=== PATIENT | female | born 1950 | race Caucasian/White ===

== ENCOUNTER 2017-01-20 10:38 | Outpatient (CLI) | payer MEDICARE, BC | END 2017-01-20 10:39 | disposition home or self-care (01) | DX: M85.89 Other specified disorders of bone density and structure, multiple sites (principal); Z78.0 Asymptomatic menopausal state ==

== ENCOUNTER 2017-12-24 10:54 | Outpatient (CLI) | payer MEDICARE, BC ==
--- NOTE | 2017-12-24 13:14 | XRAY Report ---
THREE VIEW RIGHT FOOT: 12/24/2017 CLINICAL INDICATION: Pain medially. FINDINGS: AP, lateral, oblique views of the right foot demonstrate mild degenerative changes. Plantar and posterior calcaneal spurring is present. There is no evidence of acute fracture or dislocation. No radiopaque foreign body is seen in the soft tissues. IMPRESSION: DEGENERATIVE CHANGES. TD: 12/24/2017 13:13
== END 2017-12-24 10:55 | disposition home or self-care (01) ==
LOC: DI 10:54
PROVIDERS: ATTEND Podiatrist
DX: M19.071 Primary osteoarthritis, right ankle and foot (principal)

== ENCOUNTER 2018-01-26 09:30 | Outpatient (CLI) | payer MEDICARE, BC ==
[2018-01-26 15:58] LABS: ALBUMIN 4.3 g/dL (3.2-5.5); ALBUMIN/GLOBULIN RATIO 1.5 (1.0-2.2); ALKALINE PHOSPHATASE 83 IU/L (42-121); ALT ALANINE AMINOTRANSFERASE 20 IU/L (10-60); AST ASPARTATE AMINOTRANSFERASE 24 IU/L (10-42); BILIRUBIN,TOTAL 0.7 mg/dL (0.2-1.0); BUN - BLOOD UREA NITROGEN 15 mg/dL (6-20); CALCIUM 9.5 mg/dL (8.5-10.3); CARBON DIOXIDE - CO2 29 mmol/L (21-32); CHLORIDE 102 mmol/L (101-111); CHOLESTEROL 258 mg/dL; CREATININE 0.7 mg/dL (0.4-1.0); GFR - MDRD 83 (>89); GLUCOSE 85 mg/dL (70-100); HDL CHOLESTEROL 64 mg/dL; LDL CHOLESTEROL,CALCULATED 173 mg/dL; LDL/HDL RATIO 2.7 (<4.4); SODIUM 138 mmol/L (135-145); TOTAL PROTEIN 7.1 g/dL (6.7-8.2); VLDL CHOLESTEROL 21 mg/dL
== END 2018-01-26 09:31 ==
LOC: LAB.R 09:30
PROVIDERS: ATTEND Internal Medicine
DX: E03.9 Hypothyroidism, unspecified (principal); E78.2 Mixed hyperlipidemia; R73.09 Other abnormal glucose
CPT/HCPCS: 80053; 80061; 83721; 84443

== ENCOUNTER 2020-04-02 07:40 | Outpatient (CLI) | payer MEDICARE, BC ==
[2020-04-02 12:10] LABS: BASOPHILS # (AUTO) 0.1 10^3/uL (0.0-0.1); BASOPHILS % (AUTO) 0.7 %; EOSINOPHILS # (AUTO) 0.2 10^3/uL (0.0-0.7); EOSINOPHILS % (AUTO) 2.3 %; HGB - HEMOGLOBIN 14.9 g/dL (12.0-16.0); LYMPHOCYTES # (AUTO) 1.8 10^3/uL (1.5-3.5); LYMPHOCYTES % (AUTO) 24.8 %; MEAN CORPUSCULAR HEMOGLOBIN 33.2 pg (27.0-31.0); MEAN CORPUSCULAR HGB CONC 33.3 g/dL (32.0-36.0); MEAN CORPUSCULAR VOLUME 99.8 fL (81.0-99.0); MEAN PLATELET VOLUME 10.2 fL (7.9-10.8); MONOCYTES # (AUTO) 0.5 10^3/uL (0.0-1.0); MONOCYTES % (AUTO) 7.1 %; NEUTROPHILS # (AUTO) 4.6 10^3/uL (1.5-6.6); NEUTROPHILS % (AUTO) 64.8 %; PLT - PLATELET COUNT 255 10^3/uL (130-450); RED BLOOD COUNT 4.49 10^6/uL (4.20-5.40); RED CELL DISTRIBUTION WIDTH 12.4 % (12.0-15.0); WHITE BLOOD COUNT 7.1 x10^3/uL (4.8-10.8)
[2020-04-02 12:30] LABS: ALBUMIN 4.4 g/dL (3.2-5.5); ALBUMIN/GLOBULIN RATIO 1.8 (1.0-2.2); BILIRUBIN,TOTAL 0.9 mg/dL (0.2-1.0); CALCIUM 9.4 mg/dL (8.5-10.3); CREATININE 0.7 mg/dL (0.4-1.0); TOTAL PROTEIN 6.8 g/dL (6.7-8.2)
[2020-04-02 12:47] LABS: THYROID STIMULATING HORMONE 0.71 uIU/mL (0.34-5.60)
[2020-04-02 12:49] LABS: FREE T4 (FREE THYROXINE) 1.13 ng/dL (0.58-1.64)
== END 2020-04-02 23:59 | disposition home or self-care (01) ==
LOC: LAB.WCP 07:40
PROVIDERS: ATTEND Family Medicine
DX: E55.9 Vitamin D deficiency, unspecified (principal); E03.9 Hypothyroidism, unspecified; M85.80 Other specified disorders of bone density and structure, unspecified site; J68.3 Other acute and subacute respiratory conditions due to chemicals, gases, fumes and vapors; R73.9 Hyperglycemia, unspecified; E78.5 Hyperlipidemia, unspecified; K21.9 Gastro-esophageal reflux disease without esophagitis
CPT/HCPCS: 36415; 80053; 82306; 84439; 84443; 84481; 85025

== ENCOUNTER 2020-05-16 15:16 | Outpatient (CLI) | payer MEDICARE, BC ==
--- NOTE | 2020-05-17 05:47 | Mammography Report ---
BILATERAL DIGITAL SCREENING MAMMOGRAM 3D/2D: 05/16/2020 CLINICAL: Routine screening. Comparison is made to exams dated: 01/15/2016 mammogram, 09/15/2013 mammogram, 01/22/2010 ultrasound, and 01/22/2010 mammogram - [facility]. The tissue of both breasts is heterogeneously d ense. This may lower the sensitivity of mammography. There is an oval asymmetry in the right breast posterior depth superior region seen on the mediolater al oblique view only. This is more prominent. There is a round high density asymmetry in the left breast posterior depth superior region seen on th e mediolateral oblique view only. There also is an oval equal density asymmetry with an obscured margin in the left breast posterior de pth superior region seen on the mediolateral oblique view only. This is more prominent. No other significant masses or calcifications are seen in either breast. IMPRESSION: INCOMPLETE: NEEDS ADDITIONAL IMAGING EVALUATION The oval asymmetry in the right breast posterior depth superior region seen on the mediolateral obliq ue view only is indeterminate. Additional views with possible ultrasound are recommended. The round high density asymmetry in the left breast posterior depth superior region seen on the medio lateral oblique view only is indeterminate. Additional views with possible ultrasound are recommende d. The oval equal density asymmetry in the left breast posterior depth superior region seen on the medio lateral oblique view only is indeterminate. Additional views with possible ultrasound are recommende d. This exam was interpreted at Station ID: [id number]. NOTE: For mammograms, a report in lay terms will be sent to the patient. Approximately 15% of breast malignancies will not be visualized mammographically. In the management of a palpable breast mass, a negative mammogram must not discourage biopsy of a clinically suspicious lesion. Electronically Signed By: Lyubov baires/:05/16/2020 16:48:13 ACR BI-RADS Category 0: Incomplete 3340F PARENCHYMAL PATTERN: (D) - The breast(s) demonstrate(s) heterogeneously dense fibroglandular norm rodriguez. BI-RADS CATEGORY: (0) - 0 Mammo and [place] [id number] Immediate follow-up LATERALITY: (B)
== END 2020-05-16 15:17 | disposition home or self-care (01) ==
LOC: DI 15:16
PROVIDERS: ATTEND Family Medicine
DX: Z12.31 Encounter for screening mammogram for malignant neoplasm of breast (principal); R92.8 Other abnormal and inconclusive findings on diagnostic imaging of breast
CPT/HCPCS: 77063; 77067

== ENCOUNTER 2020-06-25 10:33 | Outpatient (CLI) | payer MEDICARE, BC ==
--- NOTE | 2020-06-29 16:00 | Ultrasound Report ---
LIMITED ULTRASOUND OF LEFT BREAST: 06/25/2020 CLINICAL: Patient returns today to evaluate asymmetry in left breast. Comparison is made to exam dated: 05/16/2020 mammogram - [facility]. Ultrasound of the left breast 2 o'clock region was performed. There is a benign 0.6 cm x 0.7 cm x 0.4 cm oval cyst with a smooth internal wall in the left breast a t 2 o'clock posterior depth 7 cm from the nipple. This oval cyst displays posterior acoustic enhance ment. This correlates with mammography findings. IMPRESSION: PROBABLY BENIGN No sonographic abnormality is seen corresponding to the second asymmetry in the left breast seen on M LO view only. Recommend follow up with diagnostic mammogram in 6 months. The 0.6 cm x 0.7 cm x 0.4 cm oval cyst in the left breast is benign. A follow-up mammogram in 6 months is recommended to demonstrate stability. This exam was interpreted at Station ID: [id number]. Electronically Signed By: Juan paul/norah:06/27/2020 17:34:15 Ultrasound BI-RADS: 3 Probably benign BI-RADS CATEGORY: (3) - 3 Mammogram [id number] 6 month follow-up LATERALITY: (B)
--- NOTE | 2020-06-29 16:00 | Ultrasound Report ---
LIMITED ULTRASOUND OF RIGHT BREAST: 06/25/2020 CLINICAL: Patient returns today to evaluate asymmetry in the right breast. Comparison is made to exams dated: 05/16/2020 mammogram and 01/15/2016 mammogram - [facility]. Ultrasound of the right breast upper outer quadrant was performed. No significant abnormalities were seen sonographically in the right breast. IMPRESSION: PROBABLY BENIGN No sonographic abnormality is seen in the right breast corresponding to the asymmetry seen on MLO vie w only. Follow up diagnostic mammogram is recommended in 6 months to demonstrate stability. A follow-up mammogram in 6 months is recommended to demonstrate stability. This exam was interpreted at Station ID: [id number]. Electronically Signed By: Juan paul/norah:06/27/2020 17:36:53 Ultrasound BI-RADS: 3 Probably benign BI-RADS CATEGORY: (3) - 3 Mammogram [id number] 6 month follow-up LATERALITY: (B)
--- NOTE | 2020-06-29 16:00 | Mammography Report ---
BILATERAL DIGITAL DIAGNOSTIC MAMMOGRAM 3D/2D: 06/25/2020 CLINICAL: Patient returns today to evaluate asymmetries in bilateral breasts. Comparison is made to exams dated: 05/16/2020 mammogram, 01/15/2016 mammogram, and 09/15/2013 mammogram - [facility]. The tissue of both breasts is heterogeneously dense. This may lower th e sensitivity of mammography. There is an oval asymmetry in the right breast posterior depth superior region seen on the mediolater al oblique view only. This asymmetry appears less prominent on spot compression view. There is an oval asymmetry in the left breast posterior depth superior region seen on the mediolatera l oblique view only. This is seen in additional views. This is more prominent. There also is an oval asymmetry in the left breast posterior depth superior region seen on the mediol ateral oblique view only. This is seen in additional views. This is more prominent. No other significant masses or calcifications are seen in either breast. IMPRESSION: INCOMPLETE: NEEDS ADDITIONAL IMAGING EVALUATION The oval asymmetry in the right breast posterior depth superior region seen on the mediolateral obliq ue view only has a differential diagnosis of fibroglandular tissue and is indeterminate. An ultrasou nd is recommended. The oval asymmetry in the left breast posterior depth superior region seen on the mediolateral obliqu e view only is indeterminate. An ultrasound is recommended. The oval asymmetry in the left breast posterior depth superior region seen on the mediolateral obliqu e view only is indeterminate. An ultrasound is recommended. This exam was interpreted at Station ID: [id number]. NOTE: For mammograms, a report in lay terms will be sent to the patient. Approximately 15% of breast malignancies will not be visualized mammographically. In the management of a palpable breast mass, a negative mammogram must not discourage biopsy of a clinically suspicious lesion. SUMMARY: Targeted ultrasound is recommended for further evaluation and will be scheduled immediately following this exam. Electronically Signed By: Juan paul/norah:06/29/2020 09:34:36 ACR BI-RADS Category 0: Incomplete 3340F PARENCHYMAL PATTERN: (D) - The breast(s) demonstrate(s) heterogeneously dense fibroglandular norm rodriguez. BI-RADS CATEGORY: (0) - 0 Ultrasound [id number] Immediate follow-up LATERALITY: (B)
== END 2020-06-25 10:34 | disposition home or self-care (01) ==
LOC: DI 10:33
PROVIDERS: ATTEND Family Medicine
DX: R92.8 Other abnormal and inconclusive findings on diagnostic imaging of breast (principal); N60.02 Solitary cyst of left breast
CPT/HCPCS: 76642; 77066

== ENCOUNTER 2021-01-09 12:44 | Outpatient (CLI) | payer MEDICARE, BC | END 2021-01-09 12:45 | disposition home or self-care (01) | LOC: COV 12:44 | PROVIDERS: ATTEND Family Medicine | DX: U07.1 COVID-19 (principal) ==

== ENCOUNTER 2021-02-13 07:00 | Outpatient (CLI) | payer MEDICARE, BC | END 2021-02-13 23:59 | disposition home or self-care (01) | LOC: LAB.R 07:00 | PROVIDERS: ATTEND Family Medicine | DX: R19.4 Change in bowel habit (principal); R74.8 Abnormal levels of other serum enzymes; R19.7 Diarrhea, unspecified | CPT/HCPCS: 87177; 87209 ==

== ENCOUNTER 2021-02-25 06:44 | Outpatient (CLI) | payer MEDICARE, BC ==
--- NOTE | 2021-02-25 08:18 | Ultrasound Report ---
PROCEDURE: Abdomen Complete INDICATIONS: ELEVATED ALK PHOS,CHANGE IN BOWEL HABITS,DIARRHEA TECHNIQUE: Real-time scanning was performed of the abdominal and retroperitoneal organs, with image documentatio n. COMPARISON: None. FINDINGS: Liver: Diffusely increased hepatic parenchymal echogenicity, nonspecific but most likely reflective o f diffuse moderate hepatic steatosis. No focal hepatic mass. Gallbladder: Normally distended gallbladder without wall thickening, pericholecystic fluid, sludge, o r gallstone. Biliary ducts: Normal caliber. Pancreas: Visualized portions of the pancreas are sonographically normal. Spleen: Spleen is normal in size and homogeneous in echotexture. Kidneys: Kidneys are normal in size and echotexture. Right kidney measures 10.1 cm long; left kidne y measures 11.3 cm long. There is [id number] right hydronephrosis. There is no shadowing calcul us identified. No hydronephrosis on the left. No solid masses. Aorta: Visualized aorta is normal in caliber at less than 3 cm. Iliacs: Proximal common iliac arteries are normal in caliber at less than 2.5 cm. IVC: Intrahepatic inferior vena cava is patent. Miscellaneous: No free abdominal fluid. IMPRESSION: Moderate right hydronephrosis. Moderate hepatic steatosis. Reviewed by: Samuel Saldaña MD on 02/25/2021 8:16 AM PDT Approved by: Samuel Saldaña MD on 02/25/2021 8:16 AM PDT Station ID: [id number]
== END 2021-02-25 06:45 | disposition home or self-care (01) ==
LOC: DI 06:44
PROVIDERS: ATTEND Family Medicine
DX: R74.8 Abnormal levels of other serum enzymes (principal); R19.7 Diarrhea, unspecified; R19.4 Change in bowel habit; N13.30 Unspecified hydronephrosis; K76.0 Fatty (change of) liver, not elsewhere classified

== ENCOUNTER 2021-05-03 07:10 | Outpatient (CLI) | payer MEDICARE, BC ==
[2021-05-03] MEDS ORDERED: IOPAMIDOL-300 100 ML VIAL ONE (07:53)
[2021-05-03] MEDS ORDERED: IOPAMIDOL-300 100 ML VIAL IVP ONE (08:25)
--- NOTE | 2021-05-03 16:46 | CT Report ---
PROCEDURE: IVP INDICATIONS: NEW RIGHT HYDRONEPHROSIS AND ABD PAIN CONTRAST: IV CONTRAST: Isovue 300 ml: 140 PO CONTRAST: *NO PO CONTRAST TECHNIQUE: After the administration of oral and intravenous contrast, 5 mm thick sections acquired from the diap hragms to the symphysis. 5 mm thick coronal and sagittal reformats were acquired. For radiation dos e reduction, the following was used: automated exposure control, adjustment of mA and/or kV accordin g to patient size. COMPARISON: Abdominal ultrasound 03/27/2021.. FINDINGS: Image quality: Excellent. Lung bases: Lung bases are clear. Heart size is normal. Urinary system: Both kidneys are normal in size and enhancement. Contrast-filled renal calyces are normal in morphology on the left but appear mildly hydronephrotic on the right with prominence of the renal pelvis on the right. There is, however, no perinephric edema or renal cortical atrophy.. Cont rast filled portions of both ureters are normal in caliber. Bladder wall thickness is normal. A suzette culus along the course of either ureter is not seen on the precontrast imaging. Solid organs: Liver and spleen are normal in size and enhancement. Gallbladder appears normal Bili alexa system is non dilated. Pancreas enhances normally. No adrenal nodules. Peritoneum and bowel: Bowel loops demonstrate normal wall thickness and caliber. No free fluid or a ir. Nodes and vessels: No retroperitoneal or mesenteric adenopathy by size criteria. Aorta and inferior vena cava are normal in size. Abdominal wall: No ventral hernias. Pelvis: No pathologic free pelvic fluid. No inguinal hernias or adenopathy. Bones: No suspicious bony lesions. No vertebral body compression fractures. IMPRESSION: There is prominence of the renal collecting system and calyces at the right kidney as wa s seen on ultrasound scanning 02/25/2021. However, the ureters bilaterally are equal in size overall, and no calculus or mass along the course of either ureter is seen through the retroperitoneum and at the bladder level. Overall, therefore, this may represent a normal anatomic variant for the patient w ith mild ureteropelvic junction stenosis and therefore without perinephric edema or evidence of renal cortical atrophy. Follow-up assessment over time utilizing ultrasound could be performed in 3 and 6 months thereafter t o establish chronicity of this appearance. Alternatively, if there is an available outside examinatio n from elsewhere that evaluates the kidneys by either CT or ultrasound technique it would be valuable to obtain that study for comparison to the recent ultrasound and this current CT scan. Overall, no definite acute disease. Reviewed by: Koko Harding MD on 05/03/2021 4:45 PM PDT Approved by: Koko Harding MD on 05/03/2021 4:45 PM PDT Station ID: [id number]
== END 2021-05-03 07:11 | disposition home or self-care (01) ==
LOC: DI 07:10
PROVIDERS: ATTEND Urology
DX: R10.32 Left lower quadrant pain (principal); N13.30 Unspecified hydronephrosis
CPT/HCPCS: 74178; Q9967

== ENCOUNTER 2021-07-12 11:27 | Day surgery (SDC) | payer MEDICARE, BC ==
[2021-07-12] MEDS ORDERED: LACTATED RINGERS 1,000 ML IV ONE ×2 (11:39→14:54)
--- NOTE | 2021-07-12 13:54 | ANESTHESIA ---
Pre-Anesthesia VS, & Labs - Diagnosis change in bowel habits - Procedure colonoscopy Vital Signs: Temp Pulse Resp BP Pulse Ox 36.9 C 68 16 154/92 H 96 07/12/21 11:50 07/12/21 11:50 07/12/21 11:50 07/12/21 11:50 07/12/21 11:50 Height: 5 ft 2 in Weight (kg): 56.2 kg Body Mass Index: 22.6 BMI Classification: Healthy weight - NPO >8 hours - Is Patient ?: No Home Medications and Allergies Home Medications: Ambulatory Orders Multivitamin 1 each PO DAILY 07/11/21 Levothyroxine [Synthroid] 88 mcg PO QDAC 10/27/13 Multivitamin 1 each PO DAILY 07/11/21 Allergies/Adverse Reactions: Allergies Allergy/AdvReac Type Severity Reaction Status Date / Time rabeprazole sodium * Allergy Mild Anxiety Verified 10/28/13 07:06 [From Aciphex] Sulfa (Sulfonamide Allergy Unknown Unknown Unverified 10/27/13 12:43 Antibiotics) Anes History & Medical History - Anesthetic History Anesthesia Complications: reports: No previous complications - Medical History Cardiovascular: reports: None Pulmonary: reports: None Gastrointestinal: reports: GERD Urinary: reports: None Musculoskeletal: reports: None Endocrine/Autoimmune: reports: HyPOthyroidism Skin: reports: Rosacea History of Cancer?: No - Surgical History General: reports: Other Eyes Ears Nose Throat (EENT): reports: Tonsil/Adenoidectomy Gynecologic: reports: Tubal ligation Exam General: Alert, Oriented x3 Dental: WNL Mouth Opening: Greater than 4 Fingerbreadths Mallampati classification: II Thyromental Distance: greater than 6 cm Respiratory: Lungs clear Cardiovascular: Regular rate Plan Anesthesia Type: Total IV Consent for Procedure(s) Verified and Reviewed: Yes Code Status: Attempt Resuscitation ASA classification: 2-Mild systemic disease Is this case an emergency?: No
[2021-07-12] MEDS ORDERED: PROPOFOL 500 MG/50 ML 500 MG/50 ML VIAL ONE (14:15)
[2021-07-12] MEDS ORDERED: MIDAZOLAM 2 MG/2 ML VIAL ONE (14:15)
--- NOTE | 2021-07-12 14:23 | HISTORY & PHYSICAL EXAMINATION ---
Chief Complaint - Chief Complaint Chief Complaint: change in bowel habits History of Present Illness - History Obtained From Records Reviewed: yes History obtained from: pt Exam Limitations: none - History of Present Illness HPI Comment/Other: frequent loose stool for months with negative cultures History - Past Medical History Cardiovascular: reports: None Respiratory: reports: None Endocrine/Autoimmune: reports: HyPOthyroidism GI: reports: GERD : reports: None HEENT: reports: None Psych: reports: None Musculoskeletal: reports: None Derm: reports: Rosacea MRSA Hx?: No - Past Surgical History General: reports: Other /PATHOLOGY MANAGER: reports: Tubal ligation HEENT: reports: Tonsil/Adenoidectomy Meds/Allgy - Home Medications Home Medications: Ambulatory Orders Medication Instructions Recorded Confirmed Levothyroxine [Synthroid] 88 mcg PO QDAC 10/27/13 07/12/21 Multivitamin 1 each PO DAILY 07/11/21 07/12/21 - Allergies Allergies/Adverse Reactions: Allergies Allergy/AdvReac Type Severity Reaction Status Date / Time rabeprazole sodium * Allergy Mild Anxiety Verified 10/28/13 07:06 [From Aciphex] Sulfa (Sulfonamide Allergy Unknown Unknown Unverified 10/27/13 12:43 Antibiotics) Review of Systems - Other Findings Other Findings: 10 pt ros as above otherwise unremarkable Exam - Vital Signs Reviewed Vital Signs: Yes Vital Signs: Vital Signs x48h Temp Pulse Resp BP Pulse Ox 07/12/21 11:50 36.9 C 68 16 154/92 H 96 - Physical Exam General Appearance: positive: No acute distress, Alert Eyes Bilateral: positive: PERRL, EOMI Neck: positive: No JVD Respiratory: positive: No respiratory distress, Breath sounds nml Cardiovascular: positive: Regular rate & rhythm Abdomen: positive: Non-tender, No distention Neurologic/Psychiatric: positive: Oriented x3 Conclusion/Plan - Problem List (1) Change in bowel habits Conclusion/Plan: plan colonoscopy with biopsies. parq held and consent obtained
[2021-07-12] MEDS ORDERED: KETAMINE 500 MG/10 ML VIAL ONE (15:03)
[2021-07-12 15:21] VITALS: BP 149/89
== END 2021-07-12 11:28 | disposition home or self-care (01) ==
LOC: SDS 11:27
PROVIDERS: ATTEND Surgery
PROC: 0DBF8ZX Excision of Right Large Intestine, Via Natural or Artificial Opening Endoscopic, Diagnostic (ICD-10-PCS; 2021-07-12)
PROC: 0DBG8ZX Excision of Left Large Intestine, Via Natural or Artificial Opening Endoscopic, Diagnostic (ICD-10-PCS; principal; 2021-07-12 14:00)
DX: R19.4 Change in bowel habit (principal); J68.3 Other acute and subacute respiratory conditions due to chemicals, gases, fumes and vapors
CPT/HCPCS: 45380; J7120

== ENCOUNTER 2022-01-02 18:46 | Outpatient (CLI) | payer MEDICARE, BC ==
--- NOTE | 2022-01-03 08:27 | Ultrasound Report ---
PROCEDURE: Retroperitoneal INDICATIONS: HYDRONEPHROSIS TECHNIQUE: Real-time scanning was performed of the retroperitoneal organs, with image documentation. COMPARISON: Reference is made to CT abdomen and pelvis dated May 05, 2021. Reference is made to a bdominal ultrasound dated February 25, 2021. TECHNIQUE: Sonographic evaluation of the kidneys was performed. FINDINGS: RIGHT KIDNEY: Measures 10 cm in length. The renal cortex thickness measures 1.3 cm. Normal contour and echotexture. Preservation of the cortical thickness and cortical medullary differe ntiation. Persistent hydronephrosis with the renal pelvis measuring 1.9 cm in transverse dimension. LEFT KIDNEY: Measures 10.8 cm in length. The renal cortex thickness measures 1.5 cm. Normal contour and echotexture. Preservation of the cortical thickness and cortical medullary differe ntiation. No hydronephrosis. URINARY BLADDER: Prevoid volume: 320.3 mL. Post void volume: 20.03 mL. Both ureteral jets are visualized. OTHER: None. IMPRESSION: 1.Persistent right hydronephrosis. Reviewed by: Perfecto Sparrow MD on 01/03/2022 8:26 AM PDT Approved by: Perfecto Sparrow MD on 01/03/2022 8:26 AM PDT Station ID: [id number]
== END 2022-01-02 18:47 | disposition home or self-care (01) ==
LOC: DI 18:46
PROVIDERS: ATTEND Urology
DX: N13.30 Unspecified hydronephrosis (principal)

== ENCOUNTER 2022-04-02 06:46 | Outpatient (CLI) | payer MEDICARE, BC ==
--- NOTE | 2022-04-02 09:52 | Ultrasound Report ---
PROCEDURE: Retroperitoneal INDICATIONS: RIGHT HYDRONEPHROSIS TECHNIQUE: Real-time scanning was performed of the retroperitoneal organs, with image documentation. COMPARISON: None. FINDINGS: Kidneys: Kidneys are normal in size. Right kidney measures 11.0 cm long; left kidney measures 10.7 cm long. Right renal cortical thickness is 1.3 cm; left renal cortical thickness is 1.5 cm. No solid or cystic masses. The right kidney has mild hydronephrosis. Bladder: Pre-void bladder volume is 391 mL. Post-void residual is 28 mL. Pre-void images demonstra te no intraluminal masses or stones. On pre-void images, bilateral ureteral jets are noted with col or Doppler interrogation. (Of note, ureteral jets may not be detectable in up to 25% of cases due to insufficient differences in specific gravity between ureteral and bladder urine). Miscellaneous: No free abdominal fluid. IMPRESSION: Mild right hydronephrosis likely due to chronic pelviectasis versus acute obstruction, unchanged compared to prior ultrasounds and CTs. There is probably some degree of chronic UPJ stenosi s as seen on prior CT. Reviewed by: Leonard Bhatt on 04/02/2022 9:51 AM PDT Approved by: Leonard Bhatt on 04/02/2022 9:51 AM PDT Station ID: [id number]
== END 2022-04-02 06:47 | disposition home or self-care (01) ==
LOC: DI 06:46
PROVIDERS: ATTEND Urology
DX: N13.30 Unspecified hydronephrosis (principal)

== ENCOUNTER 2022-07-23 08:00 | Outpatient (CLI) | payer MEDICARE, BC ==
[2022-07-23 12:41] LABS: BASOPHILS # (AUTO) 0.1 10^3/uL (0.0-0.1); BASOPHILS % (AUTO) 0.8 %; EOSINOPHILS # (AUTO) 0.5 10^3/uL (0.0-0.7); EOSINOPHILS % (AUTO) 7.5 %; HCT - HEMATOCRIT 46.5 % (37.0-47.0); HGB - HEMOGLOBIN 15.1 g/dL (12.0-16.0); LYMPHOCYTES # (AUTO) 1.9 10^3/uL (1.5-3.5); LYMPHOCYTES % (AUTO) 32.2 %; MEAN CORPUSCULAR HEMOGLOBIN 31.6 pg (27.0-31.0); MEAN CORPUSCULAR HGB CONC 32.5 g/dL (32.0-36.0); MEAN CORPUSCULAR VOLUME 97.3 fL (81.0-99.0); MEAN PLATELET VOLUME 10.2 fL (7.9-10.8); MONOCYTES # (AUTO) 0.5 10^3/uL (0.0-1.0); MONOCYTES % (AUTO) 8.1 %; NEUTROPHILS # (AUTO) 3.1 10^3/uL (1.5-6.6); NEUTROPHILS % (AUTO) 51.2 %; PLT - PLATELET COUNT 250 10^3/uL (130-450); RED BLOOD COUNT 4.78 10^6/uL (4.20-5.40); RED CELL DISTRIBUTION WIDTH 12.2 % (12.0-15.0)
[2022-07-23 13:24] LABS: ALBUMIN 4.6 g/dL (3.2-5.5); ALBUMIN/GLOBULIN RATIO 1.5 (1.0-2.2); ALKALINE PHOSPHATASE 134 IU/L (42-121); ALT ALANINE AMINOTRANSFERASE 25 IU/L (10-60); AST ASPARTATE AMINOTRANSFERASE 26 IU/L (10-42); BUN - BLOOD UREA NITROGEN 12 mg/dL (6-20); CALCIUM 9.7 mg/dL (8.5-10.3); CARBON DIOXIDE - CO2 29 mmol/L (21-32); CHLORIDE 101 mmol/L (101-111); CHOL/HDL RATIO 4.6 (<4.4); CHOLESTEROL 280 mg/dL; CREATININE 0.6 mg/dL (0.4-1.0); GAMMA GLUTAMYL TRANSPEPTIDASE 13 IU/L (8-38); GFR - MDRD 98 (>89); GLUCOSE 105 mg/dL (70-100); HDL CHOLESTEROL 61 mg/dL; LDL CHOLESTEROL,CALCULATED 200 mg/dL; LDL/HDL RATIO 3.3 (<4.4); POTASSIUM 4.5 mmol/L (3.5-5.0); SODIUM 138 mmol/L (135-145); TOTAL PROTEIN 7.6 g/dL (6.7-8.2); TRIGLYCERIDES 95 mg/dL; VLDL CHOLESTEROL 19 mg/dL
[2022-07-23 13:25] LABS: THYROID STIMULATING HORMONE 0.12 uIU/mL (0.34-5.60)
[2022-07-23 13:50] LABS: ESTIMATED AVERAGE GLUCOSE 123 mg/dL (70-100); HEMOGLOBIN A1c% 5.9 % (4.27-6.07)
[2022-07-23 14:11] LABS: FREE T4 (FREE THYROXINE) 1.1 ng/dL (0.58-1.64)
[2022-07-26 02:08] LABS: ALK PHOS BONE FRACTION 56 % (14-68); ALK PHOS INTESTINAL FRACTION 1 % (0-18); ALK PHOS LIVER FRACTION 43 % (18-85); ALKALINE PHOSPHATASE TOTAL 149 IU/L (44-121)
== END 2022-07-23 23:59 | disposition home or self-care (01) ==
LOC: LAB.N 08:00
PROVIDERS: ATTEND Family Medicine
DX: E78.5 Hyperlipidemia, unspecified (principal); E03.9 Hypothyroidism, unspecified; R74.8 Abnormal levels of other serum enzymes; R73.9 Hyperglycemia, unspecified; R03.0 Elevated blood-pressure reading, without diagnosis of hypertension
CPT/HCPCS: 36415; 80053; 80061; 82977; 83036; 83721; 84075; 84080; 84439; 84443; 85025

== ENCOUNTER 2022-08-16 10:46 | Outpatient (CLI) | payer MEDICARE, BC ==
--- NOTE | 2022-08-16 11:29 | XRAY Report ---
PROCEDURE: Foot 2 View RT INDICATIONS: FOOT PAIN TECHNIQUE: 2 weightbearing views of the foot were acquired. COMPARISON: 12/24/2017 FINDINGS: Bones: No fractures or dislocations. No suspicious bony lesions. Age-appropriate degenerative changes are seen. Plantar and Achilles calcaneal spurs are seen. Toe a lignment abnormalities can be seen. Soft tissues: No tibiotalar joint effusion. Achilles tendon appears normal. IMPRESSION: Plain film study within normal limits for age, with generalized degenerative changes seen, including plantar and Achilles calcaneal spurs. Reviewed by: Justyn Kirby MD on 08/16/2022 10:28 AM [facility] Approved by: Justyn Kirby MD on 08/16/2022 10:28 AM [facility] Station ID: [id number]
--- NOTE | 2022-08-16 11:30 | XRAY Report ---
PROCEDURE: Knee 2 View RT INDICATIONS: KNEE PX TECHNIQUE: 2 views of the right knee(s) were acquired. COMPARISON: Correlation is made with the accompanying plain films, 08/16/2022 FINDINGS: Bones: No fractures or dislocations. No suspicious bony lesions. There is mild medial femorotibial joint space narrowing, with associated degenerative change with sub chondral sclerosis and osteophyte formation. Soft tissues: No joint effusion. No suspicious soft tissue calcifications. IMPRESSION: Mild degenerative changes are seen by plain film. If it would be helpful for clinical management decision making, please consider a dedicated, schedule d knee MRI for further evaluation (assuming that there is no contraindication). Reviewed by: Justyn Kirby MD on 08/16/2022 10:29 AM [facility] Approved by: Justyn Kirby MD on 08/16/2022 10:29 AM [facility] Station ID: [id number]
--- NOTE | 2022-08-16 11:31 | XRAY Report ---
PROCEDURE: Ankle 3 View RT INDICATIONS: ANKLE PX TECHNIQUE: 3 weight bearing views of the ankle were acquired. COMPARISON: Correlation is made with the accompanying plain films, 08/16/2022. FINDINGS: Bones: No acute fractures or dislocations. There is a remote fracture fragment seen adjacent to the superior anterior aspect of the talus, as seen on the lateral view only. Ankle mortise is normally a ligned. No suspicious bony lesions. The talar dome demonstrates an unremarkable appearance. Age-a ppropriate degenerative changes are seen. Plantar and Achilles calcaneal spurs are seen. Soft tissues: No tibiotalar joint effusion. Achilles tendon appears normal. IMPRESSION: No acute plain film abnormality is seen. If it would be helpful for clinical management decision making, please consider a dedicated, schedule d ankle MRI for further evaluation (assuming that there is no contraindication). Reviewed by: Justyn Kirby MD on 08/16/2022 10:30 AM [facility] Approved by: Justyn Kirby MD on 08/16/2022 10:30 AM [facility] Station ID: [id number]
== END 2022-08-16 10:47 | disposition home or self-care (01) ==
LOC: DI 10:46
PROVIDERS: ATTEND Registered Nurse
DX: M19.071 Primary osteoarthritis, right ankle and foot (principal); M77.31 Calcaneal spur, right foot; M17.11 Unilateral primary osteoarthritis, right knee

== ENCOUNTER 2022-11-23 15:12 | Outpatient (CLI) | payer MEDICARE, OTHER ==
--- NOTE | 2022-11-23 17:01 | XRAY Report ---
PROCEDURE: Shoulder 2 View RT INDICATIONS: RIGHT BICEPS TENDON DISORDER TECHNIQUE: 2 views of the shoulder were acquired. COMPARISON: None. FINDINGS: Bones: No fractures or dislocations. No suspicious bony lesions. Visualized ribs appear intact. Soft tissues: No suspicious soft tissue calcifications. IMPRESSION: No acute abnormality of the right shoulder. Reviewed by: Leonard Bhatt on 11/23/2022 4:00 PM [facility] Approved by: Leonard Bhatt on 11/23/2022 4:00 PM [facility] Station ID: [id number]
== END 2022-11-23 15:13 | disposition home or self-care (01) ==
LOC: DI 15:12
PROVIDERS: ATTEND Family Medicine
DX: M67.921 Unspecified disorder of synovium and tendon, right upper arm (principal)

== ENCOUNTER 2023-02-11 16:10 | Outpatient (CLI) | payer MEDICARE, OTHER ==
--- NOTE | 2023-02-12 11:26 | XRAY Report ---
PROCEDURE: Finger(s) LT INDICATIONS: CONTUSION LT INDEX FINGER WITHOUT DAMAGE TO NAIL TECHNIQUE: AP hand, 2 views of the second finger(s) acquired. COMPARISON: None. FINDINGS: Bones: There is a dorsal plate fracture with displacement at the second distal phalangeal base adjac ent to the distal interphalangeal joint. No suspicious bony lesions. 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 Soft tissues: No suspicious soft tissue calcifications or masses. Soft tissue swelling is noted at the second distal interphalangeal joint. IMPRESSION: Dorsal plate fracture with displacement of the second distal phalangeal base. Reviewed by: Bowen Santoyo MD on 02/12/2023 11:25 AM PDT Approved by: Bowen Santoyo MD on 02/12/2023 11:25 AM PDT Station ID: [id number]
== END 2023-02-11 16:11 | disposition home or self-care (01) ==
LOC: DI 16:10
PROVIDERS: ATTEND Family Medicine
DX: S62.631A Displaced fracture of distal phalanx of left index finger, initial encounter for closed fracture (principal)

== ENCOUNTER 2023-03-05 08:00 | Outpatient (CLI) | payer MEDICARE, OTHER ==
--- NOTE | 2023-03-05 12:43 | XRAY Report ---
PROCEDURE: Finger(s) LT INDICATIONS: LEFT INDEX FINGER FRACTURE TECHNIQUE: AP hand, 2 views of the second finger(s) acquired. COMPARISON: X-ray left second finger, 02/11/2023. FINDINGS: Bones: There is an avulsion fracture in the dorsal aspect of the second distal phalangeal base with mild displacement. Alignment is unchanged. No dislocations. No suspicious bony lesions. Soft tissues: No suspicious soft tissue calcifications or masses. IMPRESSION: Stable appearance of avulsion fracture at the base of the second distal phalanx. Reviewed by: Bowen Santoyo MD on 03/05/2023 12:41 PM PDT Approved by: Bowen Santoyo MD on 03/05/2023 12:41 PM PDT Station ID: [id number]
== END 2023-03-05 23:59 | disposition home or self-care (01) ==
LOC: DI.WOS 08:00
PROVIDERS: ATTEND Orthopaedic Surgery
DX: M20.011 Mallet finger of right finger(s) (principal); S62.661D Nondisplaced fracture of distal phalanx of left index finger, subsequent encounter for fracture with routine healing

== ENCOUNTER 2023-03-05 14:58 | Outpatient (CLI) | payer MEDICARE, OTHER ==
--- NOTE | 2023-03-05 15:50 | Ultrasound Report ---
PROCEDURE: Retroperitoneal INDICATIONS: HEMATURIA, hydronephrosis TECHNIQUE: Real-time scanning was performed of the retroperitoneal organs, with image documentation. COMPARISON: 04/02/2022 FINDINGS: Right kidney measures 9 cm. Left kidney measures 10 cm. Borderline bilateral cortical thinning measur ing 1.1 cm thickness on the right and 0.8 cm on the left. Moderate right hydronephrosis. Mild left pelviectasis. These findings are increased compared to prior ultrasound. Prevoid volume is 145 cc. Both ureteral jets are visualized. Postvoid volume is 120 cc. Hydronephrosi s persists post void. IMPRESSION: Moderate right and mild left collecting system dilation, slightly increased compared to prior imaging . Both ureteral jets are visualized. Post void residual is 120 cc. Hydronephrosis persists post void. Reviewed by: Silvio Medina MD on 03/05/2023 3:48 PM PDT Approved by: Silvio Medina MD on 03/05/2023 3:48 PM PDT Station ID: [id number]
== END 2023-03-05 14:59 | disposition home or self-care (01) ==
LOC: DI 14:58
PROVIDERS: ATTEND Urology
DX: R31.21 Asymptomatic microscopic hematuria (principal); N13.30 Unspecified hydronephrosis; M20.011 Mallet finger of right finger(s); S62.661D Nondisplaced fracture of distal phalanx of left index finger, subsequent encounter for fracture with routine healing

== ENCOUNTER 2023-04-01 15:14 | Outpatient (CLI) | payer MEDICARE, OTHER ==
[2023-04-01 15:41] LABS: CALCIUM 9.5 mg/dL (8.5-10.3); POTASSIUM 4.3 mmol/L (3.5-4.5)
== END 2023-04-01 15:15 | disposition home or self-care (01) ==
LOC: LAB 15:14
PROVIDERS: ATTEND Urology
DX: Z01.89 Encounter for other specified special examinations (principal)
CPT/HCPCS: 36415; 80048

== ENCOUNTER 2023-04-01 15:16 | Outpatient (CLI) | payer MEDICARE, OTHER ==
--- NOTE | 2023-04-02 09:01 | XRAY Report ---
PROCEDURE: Cervical Spine Complete INDICATIONS: SHOULDER PAIN,RIGHT TECHNIQUE: 5 views of the cervical spine acquired. COMPARISON: None. FINDINGS: Bones: No fractures or dislocations to the T2 level. Straightening of normal cervical lordosis. The re is grade I anterolisthesis of C7 on T1. Oblique images demonstrate osseous neuroforaminal stenosis , worse at C4-C5 bilaterally. Multilevel degenerative changes of the cervical spine with osteophyte f ormation, facet arthropathy, uncovertebral arthropathy and intervertebral disc height loss.. Soft tissues: No prevertebral soft tissue swelling. IMPRESSION: Multilevel degenerative changes of the cervical spine. Oblique images demonstrate osseou s neuroforaminal stenosis, worse at C4-C5 bilaterally. Findings can be further evaluated with MRI if clinically indicated. Reviewed by: Matt Frye MD on 04/02/2023 8:59 AM PDT Approved by: Matt Frye MD on 04/02/2023 8:59 AM PDT Station ID: [id number]
== END 2023-04-01 15:17 | disposition home or self-care (01) ==
LOC: DI 15:16
PROVIDERS: ATTEND Family Medicine
DX: M47.812 Spondylosis without myelopathy or radiculopathy, cervical region (principal); M48.02 Spinal stenosis, cervical region; M43.13 Spondylolisthesis, cervicothoracic region
CPT/HCPCS: 36415; 80048

== ENCOUNTER 2023-04-29 13:37 | Outpatient (CLI) | payer MEDICARE, OTHER ==
[2023-04-29 17:48] LABS: CALCIUM 9.1 mg/dL (8.5-10.3); CREATININE 0.7 mg/dL (0.4-1.0); POTASSIUM 4.2 mmol/L (3.5-5.0)
== END 2023-04-29 13:38 | disposition home or self-care (01) ==
LOC: LAB.N 13:37
PROVIDERS: ATTEND Urology
DX: N13.30 Unspecified hydronephrosis (principal); R94.4 Abnormal results of kidney function studies
CPT/HCPCS: 36415; 80048

== ENCOUNTER 2023-05-07 10:07 | Outpatient (CLI) | payer MEDICARE, OTHER ==
--- NOTE | 2023-05-07 14:25 | MRI Report ---
PROCEDURE: MRI cervical spine without contrast INDICATIONS: OSSEOUS AND SUBLUXATION STENOSIS OF CERVICAL TECHNIQUE: Multiplanar multisequential MRI of the cervical spine was obtained without contrast. COMPARISON: Conventional radiographs 04/01/2023 FINDINGS: Alignment and Curvature: There is reversal of normal cervical lordosis. Grade 1 degenerative anterio r spinal listhesis noted at C6-7 and C7-T1 Bone Marrow: Marrow demonstrates normal overall signal. Spinal Cord: Visualized spinal cord has normal size and signal. No cerebellar tonsillar herniation. Paraspinous Soft Tissues: No paravertebral masses. Prevertebral soft tissues are normal in thicknes s. C2-C3: Normal in appearance. C3-C4: Disc space narrowing and hypertrophic left uncovertebral joint results in asymmetric to mild central stenosis. Mild bilateral foraminal stenosis C4-C5: Disc space narrowing and posterior disc osteophyte complex results in mild to moderate centra l stenosis. Hypertrophic uncovertebral joints contribute to severe bilateral foraminal stenosis. C5-C6: Disc space narrowing and hypertrophic uncovertebral joints with posterior disc osteophyte com plex results in moderate central stenosis with flattening the ventral surface cord. Mild to moderate bilateral foraminal stenosis C6-C7: Disc space narrowing and asymmetric left disc aspect complex results in mild central stenosis . Mild to moderate bilateral foraminal stenosis. C7-T1: Disc space narrowing disc aspect complex present without central or foraminal stenosis. IMPRESSION: Degenerative disc disease and arthropathy results in varying degrees of central and foraminal stenosi s including mild to moderate central stenosis and severe bilateral foraminal stenosis at C4-5 Reviewed by: Jozef Oconnor MD on 05/07/2023 1:23 PM RICH Approved by: Jozef Oconnor MD on 05/07/2023 1:23 PM RICH Station ID: [id number]
== END 2023-05-07 10:08 | disposition home or self-care (01) ==
LOC: DI 10:07
PROVIDERS: ATTEND Nurse Practitioner
DX: M99 Biomechanical lesions, not elsewhere classified (principal); M99.61 Osseous and subluxation stenosis of intervertebral foramina of cervical region; M50.31 Other cervical disc degeneration, high cervical region; M48.02 Spinal stenosis, cervical region

== ENCOUNTER 2023-08-27 09:15 | Outpatient (CLI) | payer MEDICARE, OTHER ==
--- NOTE | 2023-08-28 08:48 | MRI Report ---
PROCEDURE: SHOULDER WO - RT INDICATIONS: RIGHT ROTATOR CUFF SYNDROME TECHNIQUE: Noncontrast oblique coronal T2 fast spin echo with fat saturation, oblique sagittal T1 spin echo and T2 fast spin echo with fat saturation, axial T1 spin echo and T2 fast spin echo with fat saturation t hrough the shoulder. COMPARISON: X-ray right shoulder, 11/23/2022. FINDINGS: Image quality: Excellent. Rotator cuff: There is high-grade partial-thickness tear of the supraspinatus from the musculotendino us junction to the footprint. Suspect a small focal full-thickness tear at the supraspinous and subsc apularis junction (series 9 image 6; series 7 image 14). There is moderate infraspinatus tendinosis w ithout high-grade tear. No rotator cuff muscle atrophy on sagittal images. Bones and bursae: No bone marrow contusions or fractures. Mild acromioclavicular and glenohumeral jennifer int degeneration. The acromion demonstrates conventional anatomy, without an os acromiale. No patho logic subacromial/subdeltoid bursal fluid is present. Capsule and soft tissues: Mild degenerative labral fraying. The glenohumeral ligaments appear intact. There is mild tendinosis of the long head of the biceps tendon which demonstrates normal location an d morphology. The rotator interval appears normal, without fibrosis. The coracohumeral ligament is normal in thickness. IMPRESSION: 1. High-grade partial-thickness tear of the supraspinatus tendon from the musculotendinous junction t o footprint. Suspect a small full-thickness tear at the junction of the supraspinatus and subscapular is tendons. No tendon retraction or muscle atrophy. 2. Moderate infraspinous tendinosis. 3. Mild tendinosis of the long head of the biceps. 4. Mild acromioclavicular and glenohumeral arthrosis. Reviewed by: Bowen Santoyo MD on 08/28/2023 8:47 AM PST Approved by: Bowen Santoyo MD on 08/28/2023 8:47 AM PST Station ID: [id number]
== END 2023-08-27 09:16 | disposition home or self-care (01) ==
LOC: DI 09:15
PROVIDERS: ATTEND Orthopaedic Surgery
DX: M75.111 Incomplete rotator cuff tear or rupture of right shoulder, not specified as traumatic (principal); M75.81 Other shoulder lesions, right shoulder; M19.011 Primary osteoarthritis, right shoulder

== ENCOUNTER 2023-09-15 08:57 | Outpatient (CLI) | payer MEDICARE, OTHER ==
--- NOTE | 2023-09-15 13:15 | Ultrasound Report ---
PROCEDURE: Renal (Retroperitoneal) INDICATIONS: HYDRONEPHROSIS TECHNIQUE: Real-time scanning was performed of the retroperitoneal organs, with image documentation. COMPARISON: Renal ultrasound 03/05/2023. FINDINGS: Kidneys: Kidneys are normal in size. Right kidney measures 11.4 cm long; left kidney measures 10.7 cm long. Right renal cortical thickness is 1.5 cm; left renal cortical thickness is 1.5 cm. Moderate hydronephrosis. Mild left-sided hydronephrosis. No solid masses or nephrolithiasis. Bladder: Pre-void bladder volume is 447 mL. Post-void residual is 35 mL. Pre-void images demonstra te no intraluminal masses or stones. On pre-void images, bilateral ureteral jets are noted with colo r Doppler interrogation. (Of note, ureteral jets may not be detectable in up to 25% of cases due to insufficient differences in specific gravity between ureteral and bladder urine). Miscellaneous: No free abdominal fluid. IMPRESSION: Moderate right and mild left hydronephrosis do not appear significantly changed compared to the ultra sound from 03/05/2023. Reviewed by: Juan Carpenter MD on 09/15/2023 1:14 PM PST Approved by: Juan Carpenter MD on 09/15/2023 1:14 PM PST Station ID: [id number]
== END 2023-09-15 08:58 | disposition home or self-care (01) ==
LOC: DI 08:57
PROVIDERS: ATTEND Urology
DX: N13.30 Unspecified hydronephrosis (principal)

== ENCOUNTER 2023-11-24 11:26 | Outpatient (CLI) | payer MEDICARE, OTHER ==
[2023-11-24 11:43] LABS: BASOPHILS # (AUTO) 0.1 10^3/uL (0.0-0.1); BASOPHILS % (AUTO) 0.9 %; EOSINOPHILS # (AUTO) 0.1 10^3/uL (0.0-0.7); EOSINOPHILS % (AUTO) 2.4 %; HCT - HEMATOCRIT 41.1 % (37.0-47.0); HGB - HEMOGLOBIN 13.1 g/dL (12.0-16.0); LYMPHOCYTES # (AUTO) 1.8 10^3/uL (1.5-3.5); LYMPHOCYTES % (AUTO) 33.4 %; MEAN CORPUSCULAR HEMOGLOBIN 31.1 pg (27.0-31.0); MEAN CORPUSCULAR HGB CONC 31.9 g/dL (32.0-36.0); MEAN CORPUSCULAR VOLUME 97.6 fL (81.0-99.0); MEAN PLATELET VOLUME 9.6 fL (7.9-10.8); MONOCYTES # (AUTO) 0.6 10^3/uL (0.0-1.0); MONOCYTES % (AUTO) 10.5 %; NEUTROPHILS # (AUTO) 2.9 10^3/uL (1.5-6.6); NEUTROPHILS % (AUTO) 52.4 %; PLT - PLATELET COUNT 217 10^3/uL (130-450); RED BLOOD COUNT 4.21 10^6/uL (4.20-5.40); RED CELL DISTRIBUTION WIDTH 11.9 % (12.0-15.0); WHITE BLOOD COUNT 5.5 x10^3/uL (4.8-10.8)
[2023-11-24 11:57] LABS: ALBUMIN 4.1 g/dL (3.2-5.5); ALBUMIN/GLOBULIN RATIO 1.7 (1.0-2.2); ALKALINE PHOSPHATASE 117 IU/L (42-121); ALT ALANINE AMINOTRANSFERASE 10 IU/L (10-60); AST ASPARTATE AMINOTRANSFERASE 15 IU/L (10-42); BILIRUBIN,TOTAL 0.5 mg/dL (0.2-1.0); BUN - BLOOD UREA NITROGEN 15 mg/dL (6-20); CALCIUM 9.7 mg/dL (8.5-10.3); CARBON DIOXIDE - CO2 29 mmol/L (21-32); CHLORIDE 104 mmol/L (101-111); CHOLESTEROL 211 mg/dL; CREATININE 0.6 mg/dL (0.6-1.3); GFR - MDRD 97 (>89); GLUCOSE 97 mg/dL (74-104); HDL CHOLESTEROL 53 mg/dL; LDL CHOLESTEROL,CALCULATED 129 mg/dL; LDL/HDL RATIO 2.4 (<4.4); POTASSIUM 3.9 mmol/L (3.5-4.5); SODIUM 137 mmol/L (135-145); TOTAL PROTEIN 6.5 g/dL (6.4-8.9); TRIGLYCERIDES 145 mg/dL (48-352); VLDL CHOLESTEROL 29 mg/dL
[2023-11-24 12:12] LABS: ESTIMATED AVERAGE GLUCOSE 114 mg/dL (70-100); HEMOGLOBIN A1c% 5.6 % (4.27-6.07); THYROID STIMULATING HORMONE 0.03 uIU/mL (0.34-5.60)
== END 2023-11-24 11:27 | disposition home or self-care (01) ==
LOC: LAB 11:26
PROVIDERS: ATTEND Family Medicine
DX: I10 Essential (primary) hypertension (principal); M54.12 Radiculopathy, cervical region; N13.30 Unspecified hydronephrosis; E55.9 Vitamin D deficiency, unspecified; M85.80 Other specified disorders of bone density and structure, unspecified site; E03.9 Hypothyroidism, unspecified
CPT/HCPCS: 36415; 80053; 80061; 83036; 83721; 84439; 84443; 84481; 85025

== ENCOUNTER 2024-03-26 07:33 | Outpatient (CLI) | payer MEDICARE, OTHER ==
--- NOTE | 2024-03-26 22:54 | Ultrasound Report ---
PROCEDURE: Renal (Retroperitoneal) INDICATIONS: ASYMPTOMATIC MICROSCOPIC HEMATURIA TECHNIQUE: Real-time scanning was performed of the retroperitoneal organs, with image documentation. COMPARISON: 09/15/2023 and 04/02/2022. FINDINGS: Kidneys: Kidneys are normal in size. Right kidney measures 9.3 cm long; left kidney measures 10.8 c m long. Right renal cortical thickness is 0.6 cm; left renal cortical thickness is 1.2 cm. Moderate right hydronephrosis is seen no left-sided hydronephrosis. No solid-appearing renal lesion. Bladder: Pre-void bladder volume is 275.55 mL. Post-void residual is 20.87 mL. Pre-void images dem onstrate no intraluminal masses or stones. On pre-void images, bilateral ureteral jets are noted wit h color Doppler interrogation. (Of note, ureteral jets may not be detectable in up to 25% of cases d ue to insufficient differences in specific gravity between ureteral and bladder urine). Miscellaneous: No free abdominal fluid. IMPRESSION: 1. Moderate right-sided hydronephrosis not significantly changed from previous study. No left-sided h ydronephrosis. No solid-appearing renal lesion. 2. Normal appearing urinary bladder with small postvoid residual. Reviewed by: Lino Ayala MD on 03/26/2024 10:53 PM PDT Approved by: Lino Ayala MD on 03/26/2024 10:53 PM PDT Station ID: [id number]
== END 2024-03-26 07:34 | disposition home or self-care (01) ==
LOC: DI 07:33
PROVIDERS: ATTEND Urology
DX: N13.30 Unspecified hydronephrosis (principal); R31.21 Asymptomatic microscopic hematuria